=== PATIENT | female | born 1990 | race Asian ===

== ENCOUNTER 2020-09-12 19:17 | Emergency (ER) | payer OTHER ==
[~2020-09-12] VITALS: Ht 160 cm; Wt 72.6 kg
[~2020-09-12 19:17] MED LIST: Acetaminophen 500mg (ES) tab ORAL ONE; Ketorolac 30mg Inj IV ONE
[2020-09-12 19:20] VITALS: BP 112/85
--- NOTE | 2020-09-12 19:30 | NUR ---
ED Nurse Note: Pt brought in by ambulance. Vitals are stable on RA as documented. She is febrile She walks with a steady gait. Per EMS she called 911 dt flank pain and fever that she has been treated for a kidney infection with another provider. Labs sent, urine sent. Pt is resting comfortbly, breathing is evena nd unlabored. Addendum: 09/12/20 at 1955 by TDANCEY She is axox4 Addendum: 09/12/20 at 2215 by TDANCEY Brought in by RA [id number]
[2020-09-12] MEDS ORDERED: Acetaminophen 500mg (ES) tab ORAL ONE (19:32)
[2020-09-12] MEDS ORDERED: Ketorolac 30mg Inj ONE (19:32)
[2020-09-12] MEDS ORDERED: cefTRIAXone 1 GM in NS 55 ML IVPB ONE (19:45)
[2020-09-12 19:53] LABS: ANION GAP 9 mmol/L (5-15); BLOOD UREA NITROGEN 7 mg/dL (7-18); CALCIUM 8.4 MG/DL (8.5-10.1); CARBON DIOXIDE 24 MMOL/L (21-32); CHLORIDE 100 MMOL/L (98-107); CREATININE 0.8 MG/DL (0.55-1.30); POTASSIUM 3.3 MMOL/L (3.5-5.1); SODIUM 133 MMOL/L (136-145)
[2020-09-12 19:58] LABS: ALANINE AMINOTRANSFERASE 47 U/L (12-78); ALBUMIN 3.4 G/DL (3.4-5.0); ALBUMIN/GLOBULIN RATIO 0.8 (1.0-2.7); ALKALINE PHOSPHATASE 84 U/L (46-116); ASPARTATE AMINO TRANSFERASE 29 U/L (15-37); BILIRUBIN,TOTAL 0.9 MG/DL (0.2-1.0)
[2020-09-12 20:10] LABS: HEMATOCRIT 34.4 % (37.0-47.0); HEMOGLOBIN 12.3 G/DL (12.0-16.0); MEAN CORPUSCULAR VOLUME 80 FL (80-99); PLATELET COUNT 232 K/UL (150-450); RED BLOOD COUNT 4.28 M/UL (4.20-5.40); RED CELL DISTRIBUTION WIDTH 14.5 % (11.6-14.8); WHITE BLOOD COUNT 18.6 K/UL (4.8-10.8)
[2020-09-12 20:28] LABS: BILIRUBIN, URINE NEGATIVE (NEGATIVE); GLUCOSE, URINE (UA) NEGATIVE (NEGATIVE); KETONES,URINE 3+ (NEGATIVE); LEUKOCYTE ESTERASE ,URINE 1+ (NEGATIVE); NITRITE,URINE NEGATIVE (NEGATIVE); PH,URINE 6 (4.5-8.0); PROTEIN,URINE 3+ (NEGATIVE); UROBILINOGEN,URINE 1 MG/DL (0.0-1.0)
[2020-09-12 20:48] LABS: COLOR,URINE YELLOW
[2020-09-12 20:49] LABS: APPEARANCE,URINE SLIGHTLY CLOUDY
[2020-09-12 21:50] VITALS: BP 132/80
--- NOTE | 2020-09-12 21:50 | NUR ---
ED Nurse Note: PT is resting comfortably, her breathing is even and unlabored vitals stable as docuemented on RA
--- NOTE | 2020-09-12 22:20 | Emergency Room Report ---
History of Present Illness General Chief Complaint: Female Urogenital Problems Present Illness Allergies: Coded Allergies: No Known Allergies (Unverified , 09/12/20) COVID-19 Screening Contact w/high risk pt: No Experienced COVID-19 symptoms?: No COVID-19 Testing performed REGISTERED RESPIRATORY THERAPIST: No Physical Exam Vital Signs Date Time Temp Pulse Resp B/P (MAP) Pulse Ox O2 Delivery O2 Flow Rate FiO2 09/12/20 19:13 101.5 130 18 110/82 (91) 100 Room Air Medical Decision Making Diagnostic Impression: Primary Impression: Acute pyelonephritis Laboratory Tests Test 09/12/20 19:23 White Blood Count 18.6 K/UL (4.8-10.8) H Red Blood Count 4.28 M/UL (4.20-5.40) Hemoglobin 12.3 G/DL (12.0-16.0) Hematocrit 34.4 % (37.0-47.0) L Mean Corpuscular Volume 80 FL (80-99) Mean Corpuscular Hemoglobin 28.6 PG (27.0-31.0) Mean Corpuscular Hemoglobin Concent 35.6 G/DL (32.0-36.0) Red Cell Distribution Width 14.5 % (11.6-14.8) Platelet Count 232 K/UL (150-450) Mean Platelet Volume 8.3 FL (6.5-10.1) Neutrophils (%) (Auto) % (45.0-75.0) Lymphocytes (%) (Auto) % (20.0-45.0) Monocytes (%) (Auto) % (1.0-10.0) Eosinophils (%) (Auto) % (0.0-3.0) Basophils (%) (Auto) % (0.0-2.0) Neutrophils % (Manual) Pending Lymphocytes % (Manual) Pending Platelet Estimate Pending Platelet Morphology Pending Urine Color Yellow Urine Appearance Slightly cloudy Urine pH 6 (4.5-8.0) Urine Specific [place] 1.015 (1.005-1.035) Urine Protein 3+ (NEGATIVE) H Urine Glucose (UA) Negative (NEGATIVE) Urine Ketones 3+ (NEGATIVE) H Urine Blood 4+ (NEGATIVE) H Urine Nitrite Negative (NEGATIVE) Urine Bilirubin Negative (NEGATIVE) Urine Urobilinogen 1 MG/DL (0.0-1.0) H Urine Leukocyte Esterase 1+ (NEGATIVE) H Urine RBC 30-40 /HPF (0 - 2) H Urine WBC 20-30 /HPF (0 - 2) H Urine Squamous Epithelial Cells Few /LPF (NONE/OCC) Urine Bacteria Moderate /HPF (NONE) H Urine HCG, Qualitative Negative (NEGATIVE) Sodium Level 133 MMOL/L (136-145) L Potassium Level 3.3 MMOL/L (3.5-5.1) L Chloride Level 100 MMOL/L (98-107) Carbon Dioxide Level 24 MMOL/L (21-32) Anion Gap 9 mmol/L (5-15) Blood Urea Nitrogen 7 mg/dL (7-18) Creatinine 0.8 MG/DL (0.55-1.30) Estimated Glomerular Filtration Rate > 60 mL/min (>60) Glucose Level 156 MG/DL (74-106) H Calcium Level 8.4 MG/DL (8.5-10.1) L Total Bilirubin 0.9 MG/DL (0.2-1.0) Aspartate Amino Transferase (AST) 29 U/L (15-37) Alanine Aminotransferase (ALT) 47 U/L (12-78) Alkaline Phosphatase 84 U/L (46-116) Total Protein 7.7 G/DL (6.4-8.2) Albumin 3.4 G/DL (3.4-5.0) Globulin 4.3 g/dL Albumin/Globulin Ratio 0.8 (1.0-2.7) L Lipase 78 U/L (73-393) Status: unchanged Disposition: HOME, SELF-CARE Condition: Improved Referrals: [facility],REFERRING (PCP) Scar Perez MD Sep 12, 2020 22:20
[2020-09-12] MEDS ORDERED: Ciprofloxacin 500mg tab ORAL ONE (22:30)
[2020-09-12] MEDS ORDERED: oxyCODONE HCL/Acetaminophen 5/325mg ORAL ONE (22:30)
[2020-09-12] MEDS ORDERED: PERCOCET 5-3251 EACH ORAL (22:31)
[2020-09-12] MEDS ORDERED: IBUPROFEN600 M1 ORAL (22:31)
[2020-09-12] MEDS ORDERED: CIPROFLOXACIN500 M2 ORAL (22:31)
[2020-09-12 23:10] VITALS: BP 124/86
--- NOTE | 2020-09-12 23:51 | NUR ---
ER DISCHARGE NOTE: Patient is cleared to be discharged per ERMD, pt is aox4, on room air, with stable vital signs. pt was given dc and prescription instructions, pt was able to verbalize understanding, pt id band and iv site removed without complications. pt is able to ambulate with steady gait. pt took all belongings.
== END 2020-09-12 23:10 | disposition home or self-care (01) ==
LOC: EDBD 19:17 → EMR 19:27
DX: N10 Acute pyelonephritis (principal)
CPT/HCPCS: 36415; 80053; 81003; 81025; 83690; 85007; 85025; 87086; 96361; 96365; 96375; J0696; J1885; Z7502; 99284